=== PATIENT | male | born 1990 | race Caucasian/White ===

== ENCOUNTER 2017-01-12 13:04 | Emergency (ER) | payer OTHER ==
[2017-01-12 13:13] VITALS: BP 117/76; PULSE 65; RESP 16; TEMP 97.8
--- NOTE | 2017-01-12 13:32 | ED ---
Back Pain HPI - General Chief Complaint: Back Pain/Injury Stated Complaint: back spasms & pain Time Seen by Provider: 01/12/17 13:22 Source: patient Limitations: no limitations - History of Present Illness Initial Comments: 26-year-old male patient presents to emergency department today for evaluation of lower back spasms. 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 Patient states this was going on for the last 2 weeks. Patient states he was on a short-term for the last week however he had to push the machine again last night once the restrictions lifted and it caused him to have spasms again. Patient states has history of scoliosis and frequently has pain in his lower back. He denies any injury or falls causing the pain. Patient denies any radiation of the pain down his legs. Denies any loss of bowel or bladder control. Denies any saddle anesthesia. He denies any numbness or tingling to his lower extremities, fever, chills, rash, chest pain, shortness of breath, abdominal pain, nausea or vomiting. Patient states that he was taking Mobic from his primary care physician for the pain however this was not helping so he quit taking it. Since his been trying to call his primary physician for an appointment however he isn't able to get through. - Related Data Home Medications Medication Instructions Recorded Confirmed Atomoxetine HCl [Strattera] 25 mg PO DIRECTED PRN 11/12/15 01/12/17 Previous Rx's Medication Instructions Recorded diphenhydrAMINE [Benadryl] 50 mg PO HS PRN #5 capsule 11/26/15 predniSONE 50 mg PO DAILY #5 tab 11/26/15 Cyclobenzaprine [Flexeril] 10 mg PO TID #15 tab 01/12/17 Ibuprofen [Motrin] 600 mg PO Q6HR PRN #20 tab 01/12/17 Allergies Allergy/AdvReac Type Severity Reaction Status Date / Time bupropion HCl Allergy "it Verified 01/12/17 13:13 [From Wellbutrin] effected my heart" paroxetine HCl [From Paxil] Allergy "I heard Verified 01/12/17 13:13 voices" Penicillins Allergy Rash/Hives Verified 01/12/17 13:13 Review of Systems ROS Statement: Those systems with pertinent positive or pertinent negative responses have been documented in the HPI. ROS Other: All systems not noted in ROS Statement are negative. Past Medical History Past Medical History: No Reported History History of Any Multi-Drug Resistant Organisms: None Reported Past Surgical History: Hernia Repair Past Anesthesia/Blood Transfusion Reactions: No Reported Reaction Past Psychological History: ADD/ADHD Smoking Status: Former smoker Past Alcohol Use History: Rare Past Drug Use History: None Reported - Past Family History Mother Family Medical History: No Reported History General Exam Limitations: no limitations General appearance: alert, in no apparent distress Head exam: Present: atraumatic, normocephalic, normal inspection Eye exam: Present: normal appearance, PERRL, EOMI. Absent: scleral icterus, conjunctival injection, periorbital swelling ENT exam: Present: normal exam, mucous membranes moist Neck exam: Present: normal inspection, full ROM. Absent: tenderness, meningismus, lymphadenopathy Respiratory exam: Present: normal lung sounds bilaterally. Absent: respiratory distress, wheezes, rales, rhonchi, stridor Cardiovascular Exam: Present: regular rate, normal rhythm, normal heart sounds. Absent: systolic murmur, diastolic murmur, rubs, gallop, clicks GI/Abdominal exam: Present: soft, normal bowel sounds. Absent: distended, tenderness, guarding, rebound, rigid Extremities exam: Present: normal inspection, full ROM, normal capillary refill. Absent: tenderness, pedal edema, joint swelling, calf tenderness Back exam: Present: normal inspection, paraspinal tenderness. Absent: tenderness, vertebral tenderness Neurological exam: Present: alert, oriented X3, CN II-XII intact Psychiatric exam: Present: normal affect, normal mood Skin exam: Present: warm, dry, intact, normal color. Absent: rash Course Vital Signs 01/12/17 13:09 Temperature 97.8 F Pulse Rate 65 Respiratory 16 Rate Blood Pressure 117/76 O2 Sat by Pulse 100 Oximetry Medical Decision Making - Medical Decision Making 26-year-old male patient presented to emergency department for evaluation of pain to his lower back. Patient states that while he is pushing a machine at work it causes spasms in his lower back. Patient states he has been on for the last week but as soon as he went back to work last night the pain returned. So patient will be given a restriction to limit pushing or pulling out work, Flexeril for the spasms, and ibuprofen for pain control. He will be given referral for orthopedics and instructed to be evaluated by them before ejections are listed. Patient is also instructed to follow up this primary care physician for recheck in 1-2 days. Instructed to return here immediately for any new, worsening, or concerning symptoms. Patient verbalizes understanding and agrees to this plan. Disposition Clinical Impression: Muscle spasm, Acute low back pain Disposition: HOME SELF-CARE Condition: Good Instructions: Acute Low Back Pain (ED), Muscle Spasm (ED), Lower Back Exercises (ED) Additional Instructions: Take medications as directed. Apply warm moist heat to the affected area. Gentle stretching exercises. Follow up with orthopedics in 1-2 days for recheck. Follow up with primary care physician one to 2 days for recheck. Return to immediately for any new, worsening, or concerning symptoms. Prescriptions: Cyclobenzaprine [Flexeril] 10 mg PO TID #15 tab Ibuprofen [Motrin] 600 mg PO Q6HR PRN #20 tab PRN Reason: Pain Referrals: Woo Sigala MD [Primary Care Provider] - 1-2 days Tylor Valdes DO [Doctor of Osteopathic Medicine] - 1-2 days Time of Disposition: 13:32
== END 2017-01-12 13:53 | disposition home or self-care (01) ==
LOC: EC 13:04
DX: M62.830 Muscle spasm of back (principal); Z87.891 Personal history of nicotine dependence; Z88.0 Allergy status to penicillin; Z88.8 Allergy status to other drugs, medicaments and biological substances
CPT/HCPCS: 99283

== ENCOUNTER 2018-09-08 00:11 | Emergency (ER) | payer OTHER ==
[2018-09-08] MEDS ORDERED: ONDANSETRON 4 MG ODT STARTER PACK 2 TAB BTL PO STA (01:30)
--- NOTE | 2018-09-08 02:06 | ED ---
Nausea/Vomiting/Diarrhea HPI - General Chief complaint: Nausea/Vomiting/Diarrhea Stated complaint: NVD Time Seen by Provider: 09/08/18 01:17 Source: patient Mode of arrival: ambulatory Limitations: no limitations - History of Present Illness Initial comments: Jessee is a 28-year-old male who comes to the emergency department today for evaluation of nausea vomiting diarrhea she reports he was in his usual state of health throughout the day yesterday. He reports that him and his girlfriend ate pork chops for dinner he then developed some abdominal cramping and diarrhea he reports he had multiple episodes of nonbloody diarrhea he then noticed after multiple it's that he had spotting of bright red blood when wiping and some rectal tenderness. Patient reports that he felt the diarrhea was slowing down and he laid down to go to bed around midnight but then developed nausea and had a episode of nonbloody nonbilious emesis at which time he has discomfort to bring him to the emergency department for evaluation. Upon arrival the emergency department patient reports that his girlfriend then developed nausea vomiting diarrhea as well. Patient has no past medical history of any GI pathology. No history of ulcerative colitis Crohn's or irritable or inflammatory bowel diseases. - Related Data Home Medications Medication Instructions Recorded Confirmed Meloxicam 15 mg PO DAILY 01/12/17 01/12/17 Previous Rx's Medication Instructions Recorded Cyclobenzaprine [Flexeril] 10 mg PO TID #15 tab 01/12/17 Ibuprofen [Motrin] 600 mg PO Q6HR PRN #20 tab 01/12/17 Allergies Allergy/AdvReac Type Severity Reaction Status Date / Time Penicillins Allergy Rash/Hives Verified 09/08/18 00:33 bupropion HCl AdvReac "it Verified 09/08/18 00:33 [From Wellbutrin] effected my heart" paroxetine HCl [From Paxil] AdvReac "I heard Verified 09/08/18 00:33 voices" Review of Systems ROS Statement: Those systems with pertinent positive or pertinent negative responses have been documented in the HPI. ROS Other: All systems not noted in ROS Statement are negative. Past Medical History Past Medical History: No Reported History History of Any Multi-Drug Resistant Organisms: None Reported Past Surgical History: Hernia Repair Past Anesthesia/Blood Transfusion Reactions: No Reported Reaction Past Psychological History: ADD/ADHD Smoking Status: Former smoker Past Alcohol Use History: Rare Past Drug Use History: None Reported - Past Family History Mother Family Medical History: No Reported History General Exam - General Exam Comments Initial Comments: Physical Exam GENERAL: Patient is well-developed and well-nourished. Patient is nontoxic and well- hydrated and is in no distress. HENT: Normocephalic, Atraumatic. EYES: PERRL, EOMI PULMONARY: Unlabored respirations. No audible rales rhonchi or wheezing was noted. CARDIOVASCULAR: There is a regular rate and rhythm without any murmurs gallops or rubs. ABDOMEN: Soft and nontender with normal bowel sounds. SKIN: Skin is clear with no lesions or rashes and otherwise unremarkable. : Deferred NEUROLOGIC: Patient is alert and oriented x3. Moving all extremities spontaneously MUSCULOSKELETAL: Normal extremities with adequate strength and full range of motion. No lower extremity swelling or edema. No calf tenderness. PSYCHIATRIC: Normal psychiatric evaluation. Limitations: no limitations Limitations: no limitations Course Vital Signs 09/08/18 09/08/18 00:30 02:40 Temperature 98.3 F 98.2 F Pulse Rate 100 92 Respiratory 20 16 Rate Blood Pressure 127/82 123/79 O2 Sat by Pulse 98 99 Oximetry Medical Decision Making - Medical Decision Making The patient was seen and evaluated history is obtained from the patient Patient presenting with one and half hours of nausea vomiting and diarrhea concern for possible food poisoning patient's significant other who ate the same dinner is having identical symptoms I discussed with the patient that we'll treat his nausea with ODT Zofran, encourage by mouth intake, I advised that we will not give medications to slow her stop the diarrhea as it is his body's way of a limited eating never is making him sick. Patient's breast understanding of this. The seventh patient does not appear clinically dehydrated, I don't feel he requires IV fluid resuscitation and don't feel labs would be of any benefit. Patient be treated with ODT Zofran and a by mouth challenge Patient reports nausea improved significantly after Zofran he is still having some diarrhea I again discussed with him that we will not stop the diarrhea as this is body's way of a limited eating whatever is making him sick. Patient was given ice water which he tolerated. At this time I do feel the patient stable for discharge home he does have a second dose of Zofran which he can take with him. Pertaining care were answered return parameters discussed patient was discharged home in stable condition. Disposition Clinical Impression: Food poisoning Disposition: HOME SELF-CARE Condition: Stable Instructions (If sedation given, give patient instructions): Acute Nausea and Vomiting (ED), Acute Diarrhea (ED) Is patient prescribed a controlled substance at d/c from ED?: No Referrals: Woo Sigala MD [Primary Care Provider] - 1-2 days
[2018-09-08 02:42] VITALS: BP 123/79; PULSE 92; RESP 16; TEMP 98.2
== END 2018-09-08 02:40 | disposition home or self-care (01) ==
LOC: EC 00:11
DX: T62.91XA Toxic effect of unspecified noxious substance eaten as food, accidental (unintentional), initial encounter (principal); Z87.891 Personal history of nicotine dependence; Z79.1 Long term (current) use of non-steroidal anti-inflammatories (NSAID); Z88.0 Allergy status to penicillin; Z88.8 Allergy status to other drugs, medicaments and biological substances
CPT/HCPCS: 99283

== ENCOUNTER 2020-09-03 10:11 | Emergency (ER) | payer OTHER ==
[2020-09-03 10:51] VITALS: RESP 18
--- NOTE | 2020-09-03 12:22 | ED ---
General Adult HPI - General Chief complaint: Upper Respiratory Infection Stated complaint: wants covid test for work Time Seen by Provider: 09/03/20 12:05 Source: patient Mode of arrival: ambulatory Limitations: no limitations - History of Present Illness Initial comments: 30-year-old male with a past medical history of hernia repair presents to the emergency room for a chief complaint of needing a coronavirus test. Patient states he has had congestion and a cough for about 5 days now. States his just tested positive for coronavirus yesterday. States his work requires that he get tested so that he can quarantine. Patient denies any shortness of breath or chest pain.Patient has no other complaints at this time including shortness of breath, chest pain, abdominal pain, nausea or vomiting, headache, or visual changes. - Related Data Home Medications Medication Instructions Recorded Confirmed Meloxicam 15 mg PO DAILY 01/12/17 01/12/17 Previous Rx's Medication Instructions Recorded Cyclobenzaprine [Flexeril] 10 mg PO TID #15 tab 01/12/17 Ibuprofen [Motrin] 600 mg PO Q6HR PRN #20 tab 01/12/17 Allergies Allergy/AdvReac Type Severity Reaction Status Date / Time Penicillins Allergy Rash/Hives Verified 09/03/20 10:51 bupropion HCl AdvReac "it Verified 09/03/20 10:51 [From Wellbutrin] effected my heart" paroxetine HCl [From Paxil] AdvReac "I heard Verified 09/03/20 10:51 voices" Review of Systems ROS Statement: Those systems with pertinent positive or pertinent negative responses have been documented in the HPI. ROS Other: All systems not noted in ROS Statement are negative. Past Medical History Past Medical History: No Reported History History of Any Multi-Drug Resistant Organisms: None Reported Past Surgical History: Hernia Repair Past Anesthesia/Blood Transfusion Reactions: No Reported Reaction Past Psychological History: ADD/ADHD Smoking Status: Former smoker Past Alcohol Use History: Rare Past Drug Use History: None Reported - Past Family History Mother Family Medical History: No Reported History General Exam Limitations: no limitations General appearance: alert, in no apparent distress Head exam: Present: atraumatic, normocephalic, normal inspection Eye exam: Present: normal appearance, PERRL, EOMI. Absent: scleral icterus, conjunctival injection, periorbital swelling ENT exam: Present: normal exam, mucous membranes moist Neck exam: Present: normal inspection, full ROM. Absent: tenderness, meningismus, lymphadenopathy Respiratory exam: Present: normal lung sounds bilaterally. Absent: respiratory distress, wheezes, rales, rhonchi, stridor Cardiovascular Exam: Present: regular rate, normal rhythm, normal heart sounds. Absent: systolic murmur, diastolic murmur, rubs, gallop, clicks GI/Abdominal exam: Present: soft, normal bowel sounds. Absent: distended, tenderness, guarding, rebound, rigid Course Vital Signs 09/03/20 10:49 Temperature 98.1 F Pulse Rate 64 Respiratory 18 Rate Blood Pressure 127/87 O2 Sat by Pulse 100 Oximetry Medical Decision Making - Medical Decision Making Vitals are stable. Patient is well appearing. Lungs are clear. He has no respiratory cardiac complaints. Patient just needed a covid test which did turn out worker to be positive. He did not fall Esmer antibody infusion. I did discuss quarantine. Discussed to follow up with his doctor and he'll return here for any worsening symptoms including shortness of breath. - Lab Data Lab Results 09/03/20 Range/Units 10:53 Coronavirus (PCR) Detected A (Not Detectd) Disposition Clinical Impression: COVID-19 Disposition: HOME SELF-CARE Condition: Good Instructions (If sedation given, give patient instructions): Coronavirus Disease 2019 (COVID-19) Additional Instructions: Please make sure to quarantine for at least 10-14 days as long as symptoms are improving. Take vitamins. Follow-up with your doctor. If symptoms worsen or you develop shortness of breath return to the emergency department. Is patient prescribed a controlled substance at d/c from ED?: No Referrals: Woo Sigala MD [Primary Care Provider] - 1-2 days Time of Disposition: 12:21
[2020-09-03 13:07] VITALS: BP 108/74; PULSE 77; TEMP 98.4
== END 2020-09-03 13:07 | disposition home or self-care (01) ==
LOC: EC 10:11
DX: U07.1 COVID-19 (principal); Z87.891 Personal history of nicotine dependence; Z88.0 Allergy status to penicillin
CPT/HCPCS: 87635; 99283